=== PATIENT | female | born 1975 | race Caucasian/White ===

== ENCOUNTER 2016-11-06 06:02 | Inpatient (IN) | payer BC ==
--- NOTE | 2016-10-31 11:41 | PREOP ---
ADMISSION/SURGICAL DATE: 11/06/2016 PROCEDURE: Repeat section. ANESTHESIA: Regional. SURGEON OF RECORD: Miki Cooper MD/Ernesto Zamudio MD CLINICAL INDICATIONS: A 39-week , previous sections. CONSULTING PHYSICIAN: Dayo Goodson MD HISTORY OF PRESENT ILLNESS: Jayme Pak is a 41-year-old, 4, para 3- 0-0-3, female from [place], [place], but seen at [facility] for obstetrical visit and preoperative examination on 10/28/2016. EDC is 11/13/2016, placing her at 39 weeks' gestation. She has been in good health. It has been an uncomplicated with accurate dates, based upon clinical parameters and ultrasound. Risks and benefits discussed at length. 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 PRESENT MEDICATIONS: Include vitamins. PAST MEDICAL HISTORY: Significant for 3 previous sections. No other operative procedures, hospitalizations, unusual childhood diseases, major injuries, or fractures. SOCIAL HISTORY: Happily , mom, caregiver, mother of 3, soon to be 4. Nonsmoker. No alcohol consumption. No illicit drug use. FAMILY HISTORY: Negative for early heart disease or genetic issues. REVIEW OF SYSTEMS: Otherwise feeling well. A little low back pain, pressure, and discomfort. Baby has been active. No bleeding or loss of fluid. PHYSICAL EXAMINATION: VITAL SIGNS: Weight is 212.0 pounds, temperature 97.5 degrees Fahrenheit, blood pressure 120/70, pulse of 80, respirations 16. GENERAL: Young lady, cooperative and conversant. HEENT: Reveals funduscopic benign. Bright TMs. Clear nasal discharge. Mouth and oropharynx clear. Excellent dentition. No loose teeth. NECK: Benign. Thyroid small. CHEST: Clear in all lung romero. BREASTS: Parous without pathologic findings. HEART: Regular without ectopy or murmur at 80. ABDOMEN: Term gravid uterus, 39 cm, vertex presentation. heart tones 124 to 147. Vertex by exam. PELVIC EXAM: Deferred. EXTREMITIES: Well perfused. Minimal edema. LABORATORY DATA: Preoperative laboratory studies to be performed. ASSESSMENT: Preop examination for upcoming repeat section on 11/06/2016. PLAN: Risks, benefits, and expectations discussed at length. No contraindication. Excellent candidate, appropriate dates. /[id number] MANDI
[~2016-11-06 06:02] MED LIST: Lactated Ringers 1,000 ML IV SCH
[2016-11-06] MEDS ORDERED: Citric Acid/Sodium Citrate Solution 30 ML Cup PO ONE (06:16)
[2016-11-06] MEDS ORDERED: Scopolamine 1.5 MG Transdermal Patch TRDERM PRN (07:17)
--- NOTE | 2016-11-06 07:33 | PN ---
DATE SEEN: 11/06/2016 HISTORY OF PRESENT ILLNESS: This 41-year-old, 4, para 3 female with EDC of 11/13/2016 is seen today for elective repeat section. She has had 3 previous sections without difficulties. Her has been uncomplicated without proteinuria, glucosuria, hypertension, or other problems. Please see a copy of her H and P for further details. PHYSICAL EXAMINATION: GENERAL: I examined the patient today. She has a gravid uterus. Fetus appears to be vertex with excellent heart tones. LUNGS: Clear. CARDIOVASCULAR: Unremarkable with a normal S1 and S2 without murmur, rub, or gallop. EXTREMITIES: Without clubbing. She has some mild varicosities without tenderness, erythema, or warmth. No calf pain or swelling was noted. LABORATORY DATA: Her hemogram, type and screen are pending. IMPRESSION: Term intrauterine , requesting repeat section. PLAN: We discussed risks and benefits of the surgery including anesthesia, infection, blood clots, bleeding, etc. These were reviewed with both she and her , and questions were answered. They had no further comments and requested we proceed with the procedure. /[id number] /JALYN
[2016-11-06] MEDS ORDERED: Morphine PF 10 MG/10 ML SDV ONE (08:00)
[2016-11-06] MEDS ORDERED: ePHEDrine 50 MG/ML SDV IV ONE (08:00)
[2016-11-06] MEDS ORDERED: Lactated Ringers 1,000 ML IV ONE (08:00)
[2016-11-06] MEDS ORDERED: Hetastarch in NS 500 ML IV ONE (08:00)
[2016-11-06] MEDS ORDERED: Phenylephrine 1% 10 MG/ML SDV IV ONE (08:00)
[2016-11-06] MEDS ORDERED: Oxytocin 10 Units/1 ML SDV IV ONE (08:00)
[2016-11-06] MEDS ORDERED: Ketorolac 30 MG/ML SDV IVPUSH ONE (08:00)
[2016-11-06] MEDS ORDERED: Ondansetron 4 MG/2 ML SDV IVPUSH ONE (08:00)
[2016-11-06] MEDS ORDERED: diphenhydrAMINE 50 MG/ML SDV IVPUSH PRN (10:42)
[2016-11-06] MEDS ORDERED: Naloxone 0.4 MG/ML SDV IVPUSH PRN (10:42)
[2016-11-06] MEDS ORDERED: Ketorolac 15 MG/ML SDV IVPUSH PRN (10:42)
[2016-11-06] MEDS ORDERED: hydrOXYzine HCl 50 MG/ML SDV IM PRN (10:42)
[2016-11-06] MEDS ORDERED: Nalbuphine 10 MG/1 ML Vial IVPUSH PRN (10:42)
[2016-11-06] MEDS ORDERED: Naloxone 0.4 MG in Sodium Chloride 0.9% 100 ML IV PRN (10:42)
[2016-11-06] MEDS ORDERED: Meperidine PF 25 MG/ML Syringe IVPUSH PRN (10:42)
[2016-11-06] MEDS ORDERED: Morphine 2 MG/ML Syringe IVPUSH PRN (10:42)
[2016-11-06] MEDS ORDERED: Ondansetron 4 MG/2 ML SDV IVPUSH PRN (10:45)
--- NOTE | 2016-11-06 11:25 | OR ---
DATE OF OPERATION: 11/06/2016 SURGEON: Miki Cooper MD PREOPERATIVE DIAGNOSIS: Term uterine requesting repeat section. POSTOPERATIVE DIAGNOSIS: Term uterine requesting repeat section. PROCEDURE: Repeat section through transverse incision in the lower uterine segment. STRIPPER LATEX: Ernesto Zamudio MD. ANESTHESIA: Epidural. DESCRIPTION OF PROCEDURE: With the patient under excellent epidural anesthesia, she was placed in a supine position with a roll under her right hip. Strickland catheter was placed, SCDs were placed, and the abdomen was prepped and draped in a sterile manner. Time-out was taken to identify the patient, the patient's date of , allergies, and indicated procedure, and after everyone agreed the abdomen was entered through a previous Pfannenstiel incisional scar that had healed very well. The incision was extended down to the rectus fascia. This was opened in the midline and the incision extended laterally in either direction. The rectus muscles were split in the midline and the abdominal peritoneum was identified. This was opened in the midline and the incision extended superiorly and inferiorly in either direction. A bladder blade was used to protect the bladder. The uterovesical peritoneum over the lower uterine segment was identified and opened. This incision was extended laterally in either direction. Blunt dissection was used to develop a bladder flap inferiorly that was again behind the bladder blade. The uterus was then opened in the midline over the lower uterine segment with a deep knife. Amniotomy was done and a large amount of thin green fluid was obtained. All instruments were removed and the infant was delivered from an DENIA presentation. The nasopharynx was DeLee suctioned free of large amounts of thin amniotic fluid. I also used the bulb syringe at the same time to continue suctioning. With gentle pressure over the uterine fundus, the remainder of the 's body and legs were delivered without difficulty. The baby was immediately placed in a head-down position and again aggressively DeLee suctioned of a large amount of thin, green, lightly meconium-stained fluid. Cord was doubly clamped and cut by Dr. Zamudio and the was handed off to the nurse and Dr. Goodson, who were in attendance. score and weight are still pending. Attention was returned to the mother. Cord blood was obtained and the placenta was delivered from its anterior fundal implantation site. It appeared to be intact with vessels present x3. The uterus was then brought out of the abdomen and wrapped in wet laps. A thorough inspection of the endometrial cavity was undertaken removing all remaining placental fragments and membranes. Uterus was then closed in two layers, the 2nd imbricating the 1st. We placed two figure-of- eight sutures along the suture line to give us excellent hemostasis thereafter. The whole area was monitored and again no further bleeding was noted. The uterovesical peritoneum was then closed with a running 3-0 Vicryl. Cul-de-sac was irrigated free of amniotic fluid and the uterus was placed back into the abdomen. At this time, the uterus was quite firm as IV Pitocin had been started and aggressive uterine massage was initiated while closing the uterus. The abdominal gutters were irrigated free of amniotic fluid and blood, and a final inspection of the uterine incision revealed no evidence hematomas or bleeding. Abdominal peritoneum was then closed with a running 2-0 Vicryl, rectus fascia was closed with a running 0 Vicryl, and Luciano's layer was closed with a running 4-0 undyed Vicryl. The same suture was used to close the skin in a subcuticular fashion. Benzoin and Steri-Strips were applied and the wound was dressed with 4 x 4 gauze and tape. The patient left the operating room awake, alert, and oriented. Clear yellow urine was noted in her Strickland bag and estimated blood loss was 400 mL. Sponge needle and instrument counts were all correct x2. /[id number] /MODL
[2016-11-06] MEDS: Lactated Ringers 1,000 ML IV SCH ×3 (14:07→22:51)
[2016-11-06] MEDS ORDERED: Lactated Ringers 1,000 ML IV SCH (17:00)
[2016-11-07] MEDS: Ibuprofen 600 MG Tab PO SCH ×3 (00:16→11:56)
[2016-11-07] MEDS: Lactated Ringers 1,000 ML IV SCH (03:52)
[2016-11-07] MEDS ORDERED: Acetaminophen/HYDROcodone 325-5 MG Tab PO PRN (09:07)
--- NOTE | 2016-11-07 09:42 | PN ---
DATE SEEN: 11/07/2016 SUBJECTIVE: This 41-year-old female is postop day #1 following repeat section through transverse incision in lower uterine segment. She is actually doing fairly well. She says the pain is fairly well controlled. She is sore, but she says not excessively. She has no nausea. There has been no vomiting. She says she is just beginning to pass flatus. She has had no cough. Denies any leg pain. No abnormal vaginal bleeding. She says it is a small amount and no clots has been passed. She started ibuprofen last night and discontinued her IV ketorolac. Urine output has improved remarkably through the night and she has no other complaints. OBJECTIVE: GENERAL: She appears to be quite comfortable in no acute distress. VITAL SIGNS: Afebrile. Pulse, when I checked it was 88 and regular. Recent blood pressure 122/71, respirations were 16 and unlabored, O2 saturation is 98%. HEENT: Unremarkable. Mucous membranes are just minimally pale. Thyroid was not enlarged. CHEST: Clear. CARDIOVASCULAR: Revealed a normal S1 and S2 without murmur, rub, or gallop. ABDOMEN: Slightly distended, but soft and nontender. Bowel sounds are present, although hypoactive. Hypertympany was noted. Incision looks good without erythema or drainage. No excessive tenderness was noted. Uterus was firm and nontender. EXTREMITIES: Without clubbing and no edema. No ulcerations or areas of breakdown. NEUROLOGIC: She is completely intact. LABORATORY DATA: Lab today revealed a hemoglobin of 10.9, hematocrit [place] 33.2[place] [address]. Her differential revealed 83 segs, 1 band, 14 lymphocytes, 2 monos. IMPRESSION: Postop day#1 followin. Repeat section through transverse incision lower uterine segment. 2. Mild postoperative anemia. PLAN: Will discontinue her IV and Strickland. Advance her diet slowly. Continue ibuprofen 600 mg q.6 hours with food to help control her pain and use hydrocodone with acetaminophen 5/325 mg one to two every 4 hours p.r.n. for pain. vitamins will be started one daily to help with her anemia and increase her activity. /[id number] WM/MODL
[2016-11-07 12:13] VITALS: BP 113/68
--- NOTE | 2016-11-07 14:14 | DISCH ---
DATE OF DISCHARGE: 11/07/2016 TIME: 1355 hours SUBJECTIVE: This 41-year-old, 4, para 4 female is seen today for followup. She is postop day number 1 following repeat section through transverse incision in the lower uterine segment. She continues to improve. She has been up and about, has showered, has voided since her Strickland catheter has been removed without difficulty, and she says her bleeding is scant. She says she is passing only small amounts of flatus, but is eating well, tolerating it well having no abdominal pain, has had no fever and really would like to go home. Her baby has been transferred to [place] because of hypoventilation syndrome, and she really would like to be with her. She says her pain is well controlled with ibuprofen and has not had to use anything else. She has vitamins at home. OBJECTIVE: Unchanged. She still has a mildly distended abdomen, but it is nontender. The wound looks good without drainage, erythema, or excessive tenderness. Her uterus is involuting nicely and is nontender, and her extremity exam was unremarkable. The chest is clear. IMPRESSION: 1. Postop day #1 following repeat section through transverse incision in the lower uterine segment. 2. Mild postop blood loss anemia. PLAN: Since this is her 4th section and she understands her postop course very well, I will go ahead and discharge her home. Continue the ibuprofen 600 mg q.6h, and she can use Arthritis Strength Tylenol 650 mg 2 tablets up to every 8 hours p.r.n. for breakthrough pain. Monitor output closely, and she should start passing flatus without difficulty within the next 24 hours. Diet will be advanced as tolerated and encouraged her to drink as much fluids as possible monitoring her urine output closely. vitamins will be initiated by tomorrow night at the supper table, and strength should gradually improve. If she should develop a fever, increased pain, continue to have difficulty passing flatus or nausea, vomiting, etc., to be seen immediately, and she is fully aware of this. She will follow up in 2 weeks for wound check with either myself or Dr. Goodson and a routine exam should be scheduled in 6 weeks. /[id number] WM/BENITAL RUSSD
== END 2016-11-07 14:30 | disposition home or self-care (01) | DRG 540 ==
LOC: FB.OB 06:02
PROVIDERS: ADMIT Family Medicine; ATTEND Family Medicine
PROC: 10D00Z1 Extraction of Products of Conception, Low, Open Approach (ICD-10-PCS; principal; 2016-11-06)
DX: O34.211 Maternal care for low transverse scar from previous cesarean delivery (principal); N85.8 Other specified noninflammatory disorders of uterus; Z3A.39 39 weeks gestation of pregnancy; Z37.0 Single live birth; O77.0 Labor and delivery complicated by meconium in amniotic fluid; O24.429 Gestational diabetes mellitus in childbirth, unspecified control; O90.81 Anemia of the puerperium; D64.89 Other specified anemias
CPT/HCPCS: 36415; 82962; 85025; 86850; 86900; 86901; 88307; A9270-GY; J1885; J2270; J2370; J2405; J2590; J7120

== ENCOUNTER 2021-09-17 00:02 | Emergency (ER) | payer BC ==
[2021-09-17] MEDS: Ondansetron 4 MG Tab.DIS PO ONE (00:17)
[2021-09-17] MEDS: Promethazine 25 MG/ML SDV IM STA (00:41)
[2021-09-17 00:52] VITALS: BP 152/90; PULSE 63
[2021-09-17] MEDS: Alum Hydroxide/Mag Hydroxide 15 ML, Lidocaine 2% 15 ML PO ONE ×2 (00:52)
[2021-09-17] MEDS: Metoclopramide 10 MG Tab PO ONE (01:22)
== END 2021-09-17 02:35 | disposition left against medical advice (07) ==
LOC: FB.ED 00:02
DX: K21.9 Gastro-esophageal reflux disease without esophagitis (principal); Z91.030 Bee allergy status; Z91.048 Other nonmedicinal substance allergy status
CPT/HCPCS: 96372; 99282; 99283; A9270-GY; J2550; Q0162